=== PATIENT | male | born 1990 | race Asian ===

== ENCOUNTER 2017-12-03 13:55 | Emergency (ER) | payer OTHER ==
[2017-12-03] MEDS ORDERED: fentaNYL 100 MCG/2 ML INJ ONE (14:00)
[2017-12-03] MEDS ORDERED: fentaNYL 100 MCG/2 ML INJ IVP ONE (14:07)
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
[2017-12-03 14:17] VITALS: TEMP 97.9
[2017-12-03] MEDS ORDERED: LET GEL TOPICAL 1 EA SYR TP ONE (14:58)
[2017-12-03] MEDS ORDERED: SKIN ADHESIVE (DERMABOND) 1 EACH TP ONE (16:21)
[2017-12-03 16:53] VITALS: BP 127/85; PULSE 75; RESP 16; O2SAT 96
== END 2017-12-03 16:54 | disposition home or self-care (01) ==
PROC: 0HQ1XZZ Repair Face Skin, External Approach (ICD-10-PCS; principal; 2017-12-03)
DX: S52.121A Displaced fracture of head of right radius, initial encounter for closed fracture (principal); S01.81XA Laceration without foreign body of other part of head, initial encounter; V18.2XXA Unspecified pedal cyclist injured in noncollision transport accident in nontraffic accident, initial encounter
CPT/HCPCS: 96374; J3010